=== PATIENT | male | born 1955 | race African-American/Black ===

== ENCOUNTER 2018-07-18 06:37 | Emergency (ER) | payer MEDICAID, OTHER ==
[~2018-07-18] VITALS: Ht 182.9 cm; Wt 77.0 kg
[2018-07-18] MEDS ORDERED: SODIUM CHLORIDE 0.9% 1,000 ML IV ONE ×3 (10:45→13:00)
[2018-07-18] MEDS ORDERED: KETOROLAC 15MG/ML VIAL IV ONE (10:45)
[2018-07-18 11:23] LABS: BASOPHILS % 0.7 % (0.0-2.0); EOSINOPHILS % 1.9 % (0.0-5.0); HEMOGLOBIN. 12.3 g/dL (14.0-18.0); LYMPHOCYTES % 24.8 % (20.0-50.0); MEAN CORPUSCULAR HEMOGLOBIN 30.9 pg (28.0-32.0); MEAN CORPUSCULAR VOLUME 95.7 fL (80.0-94.0); MEAN PLATELET VOLUME 9.6 fl (7.4-10.4); NEUTROPHILS % 63.6 % (40.0-76.0); PLATELET 219 x1000/uL (130-400); RED BLOOD CELL COUNT 3.98 mill/uL (4.7-6.1); RED CELL DISTRIBUTION WIDTH 14.6 % (11.6-14.6)
[2018-07-18 11:30] LABS: CHLORIDE 112 mEq/L (98-107)
[2018-07-18 11:33] LABS: INR 0.9; PROTHROMBIN TIME 9.5 sec (9.1-11.1)
[2018-07-18 11:46] LABS: CLARITY URINE CLEAR (CLEAR); COLOR URINE YELLOW (YELLOW); KETONES URINE TRACE (NEGATIVE); LEUKOCYTE ESTERASE URINE NEGATIVE (NEGATIVE); NITRITE URINE NEGATIVE (NEGATIVE); OCCULT BLOOD URINE NEGATIVE (NEGATIVE); PROTEIN URINE NEGATIVE (NEGATIVE); SPECIFIC GRAVITY URINE 1.029 (1.005-1.030)
[2018-07-18] MEDS ORDERED: IPRATROPIUM BROMIDE (0.02%) 0.5MG/2.5ML NEB HHN STA (11:57)
[2018-07-18] MEDS ORDERED: ALBUTEROL (0.083%) 2.5MG/3ML NEB HHN STA (11:57)
[2018-07-18 13:42] VITALS: BP 160/98
== END 2018-07-18 13:49 | disposition home or self-care (01) ==
LOC: ER 06:37
DX: K59.00 Constipation, unspecified (principal); F20.9 Schizophrenia, unspecified; I12.9 Hypertensive chronic kidney disease with stage 1 through stage 4 chronic kidney disease, or unspecified chronic kidney disease; N18.9 Chronic kidney disease, unspecified; J44.9 Chronic obstructive pulmonary disease, unspecified; E86.0 Dehydration; E88.09 Other disorders of plasma-protein metabolism, not elsewhere classified; D63.1 Anemia in chronic kidney disease; Z59.0 Homelessness; Z87.442 Personal history of urinary calculi
CPT/HCPCS: 36415; 71045; 80053; 80307; 80329; 81003; 83690; 85025; 85610; 96361; 96374; 99284; J1885; J7030; J7611

== ENCOUNTER 2018-07-23 09:56 | Inpatient (IN) | payer OTHER ==
[~2018-07-23] VITALS: Ht 165.1 cm; Wt 76.8 kg
[2018-07-23 11:12] LABS: BASOPHILS % 0.9 % (0.0-2.0); EOSINOPHILS % 1.4 % (0.0-5.0); HEMATOCRIT. 38.1 % (42.0-52.0); HEMOGLOBIN. 12.3 g/dL (14.0-18.0); LYMPHOCYTES % 19.4 % (20.0-50.0); MEAN CORPUSCULAR HEMOGLOBIN 30.6 pg (28.0-32.0); MEAN CORPUSCULAR VOLUME 94.8 fL (80.0-94.0); MEAN PLATELET VOLUME 9.1 fl (7.4-10.4); MONOCYTES % 7.9 % (2.0-8.0); NEUTROPHILS % 70.4 % (40.0-76.0); PLATELET 220 x1000/uL (130-400); RED BLOOD CELL COUNT 4.01 mill/uL (4.7-6.1); RED CELL DISTRIBUTION WIDTH 14.6 % (11.6-14.6)
[2018-07-23 11:20] LABS: CHLORIDE 109 mEq/L (98-107)
[2018-07-23 11:22] LABS: PARTIAL THROMBOPLASTIN TIME 27.2 sec (23.4-31.0); PROTHROMBIN TIME 10.3 sec (9.1-11.1)
[2018-07-23 11:33] LABS: CARBAMAZEPINE < 0.5 ug/mL (4-12); PHENOBARBITAL < 2.1 ug/mL (15.0-40.0)
[2018-07-23] MEDS ORDERED: ASPIRIN 325MG EC TABLET PO ONE (12:00)
[2018-07-23 12:30] LABS: CLARITY URINE CLEAR (CLEAR); COLOR URINE YELLOW (YELLOW); KETONES URINE NEGATIVE (NEGATIVE); LEUKOCYTE ESTERASE URINE NEGATIVE (NEGATIVE); NITRITE URINE NEGATIVE (NEGATIVE); OCCULT BLOOD URINE NEGATIVE (NEGATIVE); PH URINE 8.5 (4.5-8.0); PROTEIN URINE NEGATIVE (NEGATIVE); SPECIFIC GRAVITY URINE 1.011 (1.005-1.030); UROBILINOGEN URINE 0.2 E.U./dL (0.2-1.0)
[2018-07-23] MEDS ORDERED: HYDRALAZINE 20MG/ML VIAL IV ONE (12:30)
[2018-07-23 13:07] LABS: *AMPHETAMINES SCREEN URINE NEGATIVE (NEGATIVE); *BARBITURATES SCREEN URINE NEGATIVE (NEGATIVE); *BENZODIAZEPINES SCREEN URINE NEGATIVE (NEGATIVE); *COCAINE SCREEN URINE PRESUMTIVE POSITIVE (NEGATIVE)
[2018-07-23 13:08] LABS: CANNABINOID URINE SCREEN NEGATIVE (NEGATIVE); METHADONE URINE SCREEN NEGATIVE (NEGATIVE); OPIATES URINE SCREEN NEGATIVE (NEGATIVE); PHENCYCLIDINE URINE SCREEN PRESUMTIVE POSITIVE (NEGATIVE)
[2018-07-23] MEDS ORDERED: ONDANSETRON HCL 4MG/2ML INJ IV PRN (13:45)
[2018-07-23] MEDS ORDERED: LORAZEPAM 2MG/ML CPJ IV PRN (13:45)
[2018-07-23] MEDS ORDERED: ACETAMINOPHEN 325MG TABLET PO PRN (13:45)
[2018-07-23] MEDS ORDERED: HYDRALAZINE 20MG/ML VIAL IV PRN (15:00)
[2018-07-23] MEDS ORDERED: ENALAPRIL 2.5MG/2ML VIAL 2ML IV NR (17:00)
[2018-07-23 19:02] LABS: T4 FREE 0.96 ng/dL (0.76-1.46)
[2018-07-23 20:30] VITALS: BP 219/109
[2018-07-23 20:35] VITALS: BP 219/109
[2018-07-23] MEDS: LEVETIRACETAM 500MG TABLET PO SCH (21:14)
[2018-07-23] MEDS: HYDRALAZINE HCL 50MG TABLET PO SCH (21:14)
[2018-07-23] MEDS: MULTIVITAMINS,THER W-MINERALS TABLET PO SCH (21:14)
[2018-07-23] MEDS: THIAMINE HCL 100MG TABLET PO SCH (21:14)
[2018-07-23] MEDS: AMLODIPINE 5MG TABLET PO SCH (21:14)
[2018-07-23] MEDS: FOLIC ACID 1MG TABLET PO SCH (21:14)
[2018-07-23] MEDS: HYDRALAZINE 20MG/ML VIAL IV PRN (21:18)
[2018-07-23 22:15] VITALS: BP 165/73
[2018-07-23 23:43] VITALS: BP 154/77
[2018-07-23] MEDS: HYDROCODONE/ACETAMINOPHEN 5/325MG TABLET PO PRN (23:50)
[2018-07-24 02:26] LABS: VITAMIN B12 SERUM 456 pg/mL (211-911)
[2018-07-24 02:33] LABS: FOLIC ACID (FOLATE) SERUM > 20.00 ng/mL (>5.38)
[2018-07-24 04:30] VITALS: BP 184/92
[2018-07-24] MEDS: HYDRALAZINE 20MG/ML VIAL IV PRN ×2 (05:13→16:42)
[2018-07-24] MEDS: HYDRALAZINE HCL 50MG TABLET PO SCH ×2 (05:59→12:58)
[2018-07-24] MEDS: HYDROCODONE/ACETAMINOPHEN 5/325MG TABLET PO PRN ×2 (06:02→20:08)
[2018-07-24 08:00] VITALS: BP 173/83
[2018-07-24 08:24] LABS: BASOPHILS % 0.4 % (0.0-2.0); HEMATOCRIT. 46.2 % (42.0-52.0); LYMPHOCYTES % 13.7 % (20.0-50.0); MEAN CORPUSCULAR HEMOGLOBIN 30.9 pg (28.0-32.0); MEAN PLATELET VOLUME 9.9 fl (7.4-10.4); MONOCYTES % 5.5 % (2.0-8.0); NEUTROPHILS % 80.4 % (40.0-76.0); PLATELET 263 x1000/uL (130-400); RED BLOOD CELL COUNT 4.86 mill/uL (4.7-6.1); RED CELL DISTRIBUTION WIDTH 14.6 % (11.6-14.6)
[2018-07-24 08:32] LABS: CHLORIDE 106 mEq/L (98-107)
[2018-07-24] MEDS: AMLODIPINE 5MG TABLET PO SCH ×2 (12:23→21:45)
[2018-07-24] MEDS: FOLIC ACID 1MG TABLET PO SCH (12:23)
[2018-07-24] MEDS: THIAMINE HCL 100MG TABLET PO SCH (12:23)
[2018-07-24] MEDS: MULTIVITAMINS,THER W-MINERALS TABLET PO SCH (12:23)
[2018-07-24] MEDS: LOSARTAN POTASSIUM 100 MG TABLET PO SCH (12:23)
[2018-07-24] MEDS: LEVETIRACETAM 500MG TABLET PO SCH ×2 (12:33→21:46)
[2018-07-24] MEDS: MORPHINE SULFATE 4 MG/ML CPJ (NOT FOR IM USE) IV PRN ×2 (12:55→16:41)
[2018-07-24 15:20] VITALS: BP 142/77
[2018-07-24] MEDS ORDERED: SUMATRIPTAN SUCCINATE 6MG/0.5ML VIAL SUBCUT NR (16:00)
[2018-07-24 16:28] VITALS: BP 181/110
[2018-07-24 20:06] VITALS: BP 103/66
[2018-07-24 21:45] VITALS: BP 129/77
[2018-07-24] MEDS: HYDRALAZINE HCL 100MG TABLET PO SCH (21:46)
[2018-07-25] VITALS: BP 134/95
[2018-07-25 04:08] VITALS: BP 160/97
[2018-07-25] MEDS: MORPHINE SULFATE 4 MG/ML CPJ (NOT FOR IM USE) IV PRN ×2 (04:14→12:32)
[2018-07-25] MEDS: HYDRALAZINE 20MG/ML VIAL IV PRN (04:15)
[2018-07-25] MEDS: HYDRALAZINE HCL 100MG TABLET PO SCH ×3 (05:36→20:52)
[2018-07-25 08:04] VITALS: BP 150/88
[2018-07-25] MEDS: AMLODIPINE 5MG TABLET PO SCH ×2 (08:57→20:51)
[2018-07-25] MEDS: MULTIVITAMINS,THER W-MINERALS TABLET PO SCH (08:58)
[2018-07-25] MEDS: LEVETIRACETAM 500MG TABLET PO SCH ×2 (08:58→20:51)
[2018-07-25] MEDS: FOLIC ACID 1MG TABLET PO SCH (08:58)
[2018-07-25] MEDS: THIAMINE HCL 100MG TABLET PO SCH (08:58)
[2018-07-25] MEDS: LOSARTAN POTASSIUM 100 MG TABLET PO SCH (08:58)
[2018-07-25] MEDS: HYDROCODONE/ACETAMINOPHEN 5/325MG TABLET PO PRN ×2 (08:59→17:35)
[2018-07-25 12:25] VITALS: BP 140/93
[2018-07-25 16:00] VITALS: BP 133/94
[2018-07-25 20:00] VITALS: BP 136/80
[2018-07-26] VITALS: BP 143/75
[2018-07-26 04:00] VITALS: BP 123/87
[2018-07-26] MEDS: HYDRALAZINE HCL 100MG TABLET PO SCH (05:23)
[2018-07-26 07:13] LABS: BASOPHILS % 0.9 % (0.0-2.0); EOSINOPHILS % 1.3 % (0.0-5.0); HEMATOCRIT. 46.3 % (42.0-52.0); HEMOGLOBIN. 14.8 g/dL (14.0-18.0); LYMPHOCYTES % 35.6 % (20.0-50.0); MEAN CORPUSCULAR VOLUME 97.2 fL (80.0-94.0); MEAN PLATELET VOLUME 9.6 fl (7.4-10.4); MONOCYTES % 10.5 % (2.0-8.0); NEUTROPHILS % 51.7 % (40.0-76.0); PLATELET 195 x1000/uL (130-400); RED BLOOD CELL COUNT 4.76 mill/uL (4.7-6.1)
[2018-07-26 07:35] LABS: CHLORIDE 109 mEq/L (98-107)
[2018-07-26 07:42] VITALS: BP 135/86
[2018-07-26 07:54] VITALS: BP 135/86
== END 2018-07-26 08:35 | disposition home or self-care (01) | DRG 52 ==
LOC: ER 09:56 → 8WST 12:58 → ENRESERV 19:49
PROVIDERS: ADMIT Internal Medicine; ATTEND Internal Medicine
DX: G92 Toxic encephalopathy (principal); E87.8 Other disorders of electrolyte and fluid balance, not elsewhere classified; E44.1 Mild protein-calorie malnutrition; I16.0 Hypertensive urgency; F14.129 Cocaine abuse with intoxication, unspecified; G40.909 Epilepsy, unspecified, not intractable, without status epilepticus; D64.9 Anemia, unspecified; I10 Essential (primary) hypertension; Z86.73 Personal history of transient ischemic attack (TIA), and cerebral infarction without residual deficits; Z68.28 Body mass index [BMI] 28.0-28.9, adult
CPT/HCPCS: 36415; 70551; 71045; 80048; 80061; 80156; 80165; 80184; 80185; 80305; 80320; 82140; 82607; 82746; 83036; 83880; 84439; 84443; 84481; 84484; 93005; 96374; 96375; 96376; 97161; 99285; J0360; J2060; J2270; J3030; J3490; G0480

== ENCOUNTER 2018-08-29 11:35 | Inpatient (IN) | payer OTHER ==
[~2018-08-29] VITALS: Ht 172.7 cm; Wt 63.0 kg
[2018-08-29] MEDS ORDERED: LABETALOL 5MG/ML SYR 20 MG/4 ML SYRINGE IV ONE ×2 (12:15→12:24)
[2018-08-29 12:26] LABS: BASOPHILS % 0.6 % (0.0-2.0); EOSINOPHILS % 2.1 % (0.0-5.0); HEMATOCRIT. 43.2 % (42.0-52.0); HEMOGLOBIN. 14.2 g/dL (14.0-18.0); LYMPHOCYTES % 18.2 % (20.0-50.0); MEAN CORPUSCULAR HEMOGLOBIN 30.9 pg (28.0-32.0); MEAN CORPUSCULAR VOLUME 93.8 fL (80.0-94.0); MEAN PLATELET VOLUME 9.1 fl (7.4-10.4); MONOCYTES % 6.5 % (2.0-8.0); NEUTROPHILS % 72.6 % (40.0-76.0); PLATELET 221 x1000/uL (130-400); RED BLOOD CELL COUNT 4.61 mill/uL (4.7-6.1)
[2018-08-29 12:33] LABS: CHLORIDE 109 mEq/L (98-107)
[2018-08-29 12:34] LABS: PARTIAL THROMBOPLASTIN TIME 28.3 sec (23.4-31.0)
[2018-08-29 12:38] LABS: ETHANOL BLOOD < 10 mg/dL
[2018-08-29 12:41] LABS: LDL CHOLESTEROL 63 mg/dL (5-100)
[2018-08-29 12:42] LABS: CREATINE KINASE 562 IU/L (39-308)
[2018-08-29 12:52] LABS: CARBAMAZEPINE < 0.5 ug/mL (4-12); PHENOBARBITAL < 2.1 ug/mL (15.0-40.0); VALPROIC ACID < 3.0 ug/mL (50-100)
[2018-08-29] MEDS ORDERED: ASPIRIN 325MG EC TABLET PO ONE (13:15)
[2018-08-29] MEDS ORDERED: LEVETIRACETAM 500MG TABLET PO ONE (14:00)
[2018-08-29] MEDS ORDERED: LORAZEPAM 1MG TABLET PO ONE (14:15)
[2018-08-29] MEDS ORDERED: DOCUSATE SODIUM 100MG CAPSULE PO PRN (15:30)
[2018-08-29] MEDS ORDERED: MAGNESIUM/ALUMINUM HYDROXIDE/SIMETHICONE 30ML UDC PO PRN (15:30)
[2018-08-29] MEDS ORDERED: HYDROCODONE/ACETAMINOPHEN 5/325MG TABLET PO PRN (15:30)
[2018-08-29] MEDS ORDERED: ACETAMINOPHEN 325MG TABLET PO PRN (15:30)
[2018-08-29] MEDS ORDERED: IPRATROPIUM/ALBUTEROL 0.5-3(2.5)MG/3ML NEB INH PRN (15:30)
[2018-08-29] MEDS ORDERED: CLONIDINE 0.1MG TABLET PO PRN (15:30)
[2018-08-29] MEDS ORDERED: ONDANSETRON HCL 4MG/2ML INJ IV PRN (15:30)
[2018-08-29 17:07] LABS: CHLORIDE 109 mEq/L (98-107)
[2018-08-29] MEDS ORDERED: DEXTROSE 50% WATER 50ML SYRINGE IV PRN (21:00)
[2018-08-29 21:54] VITALS: BP 189/104
[2018-08-29] MEDS ORDERED: QUET400T PO (22:51)
[2018-08-29] MEDS ORDERED: OXYC-662 PO (22:51)
[2018-08-29] MEDS ORDERED: S350 PO (22:51)
[2018-08-29] MEDS ORDERED: SERT100T PO (22:51)
[2018-08-29 23:40] VITALS: BP 148/84
[2018-08-29 23:42] VITALS: BP 148/84
[2018-08-30] MEDS ORDERED: HYDRALAZINE 20MG/ML VIAL IV PRN (00:30)
[2018-08-30 02:06] LABS: CREATINE KINASE 367 IU/L (39-308)
[2018-08-30 04:00] VITALS: BP_SYST 157; BP_DIAS 88; BP_DIAS 93
[2018-08-30] MEDS: OXYCODONE HCL 5MG TABLET PO PRN ×2 (04:02→20:41)
[2018-08-30] MEDS: BLOOD SUGAR DIAGNOSTIC STRIP TEST SCH ×4 (05:16→20:37)
[2018-08-30 05:24] LABS: BASOPHILS % 0.7 % (0.0-2.0); EOSINOPHILS % 3.3 % (0.0-5.0); HEMATOCRIT. 37.3 % (42.0-52.0); HEMOGLOBIN. 12.2 g/dL (14.0-18.0); LYMPHOCYTES % 25.3 % (20.0-50.0); MEAN CORPUSCULAR HEMOGLOBIN 30.5 pg (28.0-32.0); MEAN CORPUSCULAR VOLUME 93.5 fL (80.0-94.0); MONOCYTES % 10.4 % (2.0-8.0); NEUTROPHILS % 60.3 % (40.0-76.0); PLATELET 228 x1000/uL (130-400); RED BLOOD CELL COUNT 3.99 mill/uL (4.7-6.1); RED CELL DISTRIBUTION WIDTH 14.8 % (11.6-14.6)
[2018-08-30 05:43] LABS: CREATINE KINASE MB FRACTION 9.4 ng/mL (0.5-3.6)
[2018-08-30 08:00] VITALS: BP 181/100
[2018-08-30] MEDS: INSULIN LISPRO 100 UNITS/ML SUBCUT SCH ×4 (08:10→20:41)
[2018-08-30 08:56] LABS: CLARITY URINE CLEAR (CLEAR); COLOR URINE YELLOW (YELLOW); KETONES URINE TRACE (NEGATIVE); LEUKOCYTE ESTERASE URINE NEGATIVE (NEGATIVE); NITRITE URINE NEGATIVE (NEGATIVE); OCCULT BLOOD URINE NEGATIVE (NEGATIVE); PROTEIN URINE NEGATIVE (NEGATIVE); SPECIFIC GRAVITY URINE 1.018 (1.005-1.030); UROBILINOGEN URINE 0.2 E.U./dL (0.2-1.0)
[2018-08-30 09:15] LABS: *AMPHETAMINES SCREEN URINE NEGATIVE (NEGATIVE); *BARBITURATES SCREEN URINE NEGATIVE (NEGATIVE); *BENZODIAZEPINES SCREEN URINE NEGATIVE (NEGATIVE); *COCAINE SCREEN URINE NEGATIVE (NEGATIVE); CANNABINOID URINE SCREEN NEGATIVE (NEGATIVE); METHADONE URINE SCREEN NEGATIVE (NEGATIVE); OPIATES URINE SCREEN NEGATIVE (NEGATIVE)
[2018-08-30 09:16] LABS: PHENCYCLIDINE URINE SCREEN PRESUMTIVE POSITIVE (NEGATIVE)
[2018-08-30] MEDS: ASPIRIN 81MG EC TABLET PO SCH (09:37)
[2018-08-30] MEDS: ENOXAPARIN 40MG/0.4ML SYR SUBCUT SCH (09:40)
[2018-08-30 12:00] VITALS: BP 153/96
[2018-08-30 15:09] VITALS: BP 149/80
[2018-08-30 16:00] VITALS: BP 139/85
[2018-08-30 20:00] VITALS: BP 131/83
[2018-08-31 00:05] VITALS: BP 139/77
[2018-08-31] MEDS: OXYCODONE HCL 5MG TABLET PO PRN ×2 (03:56→09:06)
[2018-08-31 04:00] VITALS: BP 140/85
[2018-08-31 05:57] LABS: BASOPHILS % 0.5 % (0.0-2.0); EOSINOPHILS % 1.3 % (0.0-5.0); HEMOGLOBIN. 12.4 g/dL (14.0-18.0); LYMPHOCYTES % 25.4 % (20.0-50.0); MEAN CORPUSCULAR HEMOGLOBIN 31.1 pg (28.0-32.0); MEAN CORPUSCULAR VOLUME 92.9 fL (80.0-94.0); MEAN PLATELET VOLUME 9.3 fl (7.4-10.4); MONOCYTES % 7.3 % (2.0-8.0); NEUTROPHILS % 65.5 % (40.0-76.0); PLATELET 229 x1000/uL (130-400); RED BLOOD CELL COUNT 3.99 mill/uL (4.7-6.1); RED CELL DISTRIBUTION WIDTH 14.6 % (11.6-14.6)
[2018-08-31 06:05] LABS: CHLORIDE 107 mEq/L (98-107)
[2018-08-31] MEDS: INSULIN LISPRO 100 UNITS/ML SUBCUT SCH (07:53)
[2018-08-31] MEDS: BLOOD SUGAR DIAGNOSTIC STRIP TEST SCH (07:53)
[2018-08-31 08:12] VITALS: BP 149/99
[2018-08-31] MEDS: ASPIRIN 81MG EC TABLET PO SCH (09:03)
[2018-08-31] MEDS: ENOXAPARIN 40MG/0.4ML SYR SUBCUT SCH (09:03)
[2018-08-31] MEDS ORDERED: ASPI-1158 PO (12:23)
[2018-08-31 13:51] VITALS: BP 149/99
== END 2018-08-31 14:44 | disposition home or self-care (01) | DRG 347 ==
LOC: ER 11:45 → 7WST 13:41 → EDBEDREQSVC 13:47 → EDBEDREQ 13:47 → ENRESERV 20:26
PROVIDERS: ADMIT Internal Medicine; ATTEND Internal Medicine
DX: M48.02 Spinal stenosis, cervical region (principal); N17.9 Acute kidney failure, unspecified; E87.8 Other disorders of electrolyte and fluid balance, not elsewhere classified; I69.351 Hemiplegia and hemiparesis following cerebral infarction affecting right dominant side; E78.5 Hyperlipidemia, unspecified; F16.90 Hallucinogen use, unspecified, uncomplicated; F17.210 Nicotine dependence, cigarettes, uncomplicated; I10 Essential (primary) hypertension; I16.1 Hypertensive emergency; M47.812 Spondylosis without myelopathy or radiculopathy, cervical region; Z91.19 Patient's noncompliance with other medical treatment and regimen; I16.0 Hypertensive urgency; R73.9 Hyperglycemia, unspecified
CPT/HCPCS: 36415; 70551; 71045; 72141; 80048; 80061; 80156; 80165; 80184; 80185; 80305; 80320; 82550; 82553; 82962; 83036; 83721; 83735; 83880; 84443; 84484; 93005; 93880; 93970; 96374; 97162; 97165; 99291; J1650; J1815; J3490; G0480

== ENCOUNTER 2018-09-25 04:51 | Emergency (ER) | payer OTHER ==
[~2018-09-25] VITALS: Ht 177.8 cm; Wt 70.0 kg
[~2018-09-25 04:51] MED LIST: ASPI-1158 PO; QUET400T PO; SERT100T PO
[2018-09-25] MEDS ORDERED: HYDROCODONE/ACETAMINOPHEN 5/325MG TABLET PO ONE (06:15)
[2018-09-25] MEDS ORDERED: CLONIDINE 0.1MG TABLET PO ONE (07:45)
[2018-09-25 08:15] VITALS: BP 180/113
== END 2018-09-25 08:20 | disposition home or self-care (01) ==
LOC: ER 04:51
DX: S09.8XXA Other specified injuries of head, initial encounter (principal); S00.83XA Contusion of other part of head, initial encounter; S00.81XA Abrasion of other part of head, initial encounter; S00.31XA Abrasion of nose, initial encounter; F32.9 Major depressive disorder, single episode, unspecified; I10 Essential (primary) hypertension; G40.909 Epilepsy, unspecified, not intractable, without status epilepticus; Y04.0XXA Assault by unarmed brawl or fight, initial encounter; Y93.89 Activity, other specified; Y92.488 Other paved roadways as the place of occurrence of the external cause
CPT/HCPCS: 70486; 99284

== ENCOUNTER 2019-09-09 08:50 | Emergency (ER) | payer MEDICARE, OTHER, MEDICAID ==
[~2019-09-09] VITALS: Ht 177.8 cm; Wt 65.0 kg
[2019-09-09] MEDS ORDERED: HYDROCODONE/ACETAMINOPHEN 5/325MG TABLET PO STA (09:43)
[2019-09-09] MEDS ORDERED: CLONIDINE 0.2MG TABLET PO ONE (09:45)
[2019-09-09 10:31] LABS: CLARITY URINE CLEAR (CLEAR); COLOR URINE YELLOW (YELLOW); KETONES URINE NEGATIVE (NEGATIVE); LEUKOCYTE ESTERASE URINE NEGATIVE (NEGATIVE); NITRITE URINE NEGATIVE (NEGATIVE); OCCULT BLOOD URINE NEGATIVE (NEGATIVE); PH URINE 7.5 (4.5-8.0); PROTEIN URINE TRACE (NEGATIVE); SPECIFIC GRAVITY URINE 1.022 (1.005-1.030); UROBILINOGEN URINE 0.2 E.U./dL (0.2-1.0)
[2019-09-09 10:32] LABS: BASOPHILS % 0.8 % (0.0-2.0); EOSINOPHILS % 2.4 % (0.0-5.0); HEMATOCRIT. 40.3 % (42.0-52.0); HEMOGLOBIN. 13.3 g/dL (14.0-18.0); MEAN CORPUSCULAR HEMOGLOBIN 31.2 pg (28.0-32.0); MEAN CORPUSCULAR VOLUME 94.4 fL (80.0-94.0); MEAN PLATELET VOLUME 9.3 fl (7.4-10.4); MONOCYTES % 6.3 % (2.0-8.0); NEUTROPHILS % 73.5 % (40.0-76.0); PLATELET 274 x1000/uL (130-400); RED BLOOD CELL COUNT 4.27 mill/uL (4.7-6.1); RED CELL DISTRIBUTION WIDTH 15.2 % (11.6-14.6)
[2019-09-09 10:33] LABS: CHLORIDE 108 mEq/L (98-107)
[2019-09-09 10:34] LABS: INR 0.9; PROTHROMBIN TIME 9.8 sec (9.6-11.0)
[2019-09-09 10:38] LABS: ETHANOL BLOOD < 10 mg/dL
[2019-09-09 11:01] LABS: *AMPHETAMINES SCREEN URINE NEGATIVE (NEGATIVE); *BARBITURATES SCREEN URINE NEGATIVE (NEGATIVE); *BENZODIAZEPINES SCREEN URINE NEGATIVE (NEGATIVE); *COCAINE SCREEN URINE PRESUMTIVE POSITIVE (NEGATIVE); METHADONE URINE SCREEN NEGATIVE (NEGATIVE); OPIATES URINE SCREEN NEGATIVE (NEGATIVE)
[2019-09-09 11:02] LABS: CANNABINOID URINE SCREEN NEGATIVE (NEGATIVE); PHENCYCLIDINE URINE SCREEN PRESUMTIVE POSITIVE (NEGATIVE)
[2019-09-09 11:59] VITALS: BP 144/98
== END 2019-09-09 12:43 | disposition home or self-care (01) ==
LOC: ER 08:50
DX: I10 Essential (primary) hypertension (principal); M25.532 Pain in left wrist; F14.10 Cocaine abuse, uncomplicated; F16.10 Hallucinogen abuse, uncomplicated; H53.8 Other visual disturbances; Z91.19 Patient's noncompliance with other medical treatment and regimen; Z86.73 Personal history of transient ischemic attack (TIA), and cerebral infarction without residual deficits; Z79.899 Other long term (current) drug therapy; Z79.82 Long term (current) use of aspirin
CPT/HCPCS: 36415; 80053; 80305; 80320; 81003; 84484; 85025; 93005; 99285; G0480

== ENCOUNTER 2021-01-28 23:51 | Emergency (ER) | payer MEDICARE, OTHER ==
[~2021-01-28] VITALS: Ht 177.8 cm; Wt 68.0 kg
[~2021-01-28 23:51] MED LIST changes: +ALBU18HF2 IH; -ASPI-1158 PO; +FLUT1DIS3 INH; +QUET300T20 MT; -QUET400T PO
[2021-01-29] MEDS ORDERED: IPRATROPIUM BROMIDE (0.02%) 0.5MG/2.5ML NEB HHN STA ×2 (02:16→05:46)
[2021-01-29] MEDS ORDERED: ALBUTEROL (0.083%) 2.5MG/3ML NEB HHN STA ×2 (02:16→05:46)
[2021-01-29] MEDS ORDERED: PREDNISONE 20MG TABLET PO STA (02:16)
[2021-01-29 03:26] LABS: CHLORIDE 112 mEq/L (98-107)
[2021-01-29] MEDS ORDERED: QUET300T2 PO (07:13)
[2021-01-29] MEDS ORDERED: P50 PO (07:13)
[2021-01-29] MEDS ORDERED: ALBU6.7H9 INH (07:13)
[2021-01-29] MEDS ORDERED: SERT-112 PO (07:13)
[2021-01-29 07:30] VITALS: BP 178/107
== END 2021-01-29 07:51 | disposition home or self-care (01) ==
LOC: ER 23:51
DX: J44.1 Chronic obstructive pulmonary disease with (acute) exacerbation (principal); I10 Essential (primary) hypertension; F99 Mental disorder, not otherwise specified; F14.10 Cocaine abuse, uncomplicated; F15.10 Other stimulant abuse, uncomplicated; F12.10 Cannabis abuse, uncomplicated; Z20.822 Contact with and (suspected) exposure to COVID-19; Z86.73 Personal history of transient ischemic attack (TIA), and cerebral infarction without residual deficits
CPT/HCPCS: 36415; 71045; 80053; 83880; 84484; 85379; 87426; 93005; 94640; 99285; J7512; Z7610

== ENCOUNTER 2021-04-05 21:49 | Inpatient (IN) | payer MEDICARE, OTHER ==
[~2021-04-05] VITALS: Ht 177.8 cm; Wt 64.9 kg
[~2021-04-05 21:49] MED LIST changes: +ALBU6.7H9 INH; +P50 PO; +QUET300T2 PO; +SERT-112 PO
[2021-04-05] MEDS ORDERED: MORPHINE SULFATE 4 MG/ML CPJ (NOT FOR IM USE) IV STA (23:50)
[2021-04-05] MEDS ORDERED: ONDANSETRON HCL 4MG/2ML INJ IV STA (23:50)
[2021-04-06] MEDS ORDERED: SODIUM CHLORIDE 0.9% 1,000 ML IV ONE
[2021-04-06 00:17] LABS: CHLORIDE 119 mEq/L (98-107)
[2021-04-06 00:18] LABS: BASOPHILS % 0.9 % (0.0-2.0); EOSINOPHILS % 2.3 % (0.0-5.0); HEMATOCRIT. 40.2 % (42.0-52.0); HEMOGLOBIN. 13.1 g/dL (14.0-18.0); LYMPHOCYTES % 29.3 % (20.0-50.0); MEAN CORPUSCULAR HEMOGLOBIN 29.9 pg (28.0-32.0); MEAN CORPUSCULAR VOLUME 91.7 fL (80.0-94.0); MEAN PLATELET VOLUME 9.8 fl (7.4-10.4); MONOCYTES % 9.6 % (2.0-8.0); NEUTROPHILS % 57.9 % (40.0-76.0); PLATELET 221 x1000/uL (130-400); RED BLOOD CELL COUNT 4.38 mill/uL (4.7-6.1); RED CELL DISTRIBUTION WIDTH 16.4 % (11.6-14.6)
[2021-04-06] MEDS ORDERED: MORPHINE SULFATE 4 MG/ML CPJ (NOT FOR IM USE) IV ONE (03:30)
[2021-04-06 05:42] LABS: *BENZODIAZEPINES SCREEN URINE NEGATIVE (NEGATIVE); *COCAINE SCREEN URINE PRESUMTIVE POSITIVE (NEGATIVE)
[2021-04-06 05:43] LABS: *AMPHETAMINES SCREEN URINE NEGATIVE (NEGATIVE); *BARBITURATES SCREEN URINE NEGATIVE (NEGATIVE); CANNABINOID URINE SCREEN PRESUMTIVE POSITIVE (NEGATIVE); METHADONE URINE SCREEN NEGATIVE (NEGATIVE); OPIATES URINE SCREEN NEGATIVE (NEGATIVE); PHENCYCLIDINE URINE SCREEN PRESUMTIVE POSITIVE (NEGATIVE)
[2021-04-06] MEDS ORDERED: IOHEXOL-300 100 ML BOTTLE ONE (06:20)
[2021-04-06] MEDS: CLONIDINE 0.1MG TABLET PO PRN ×2 (08:12→13:33)
[2021-04-06] MEDS ORDERED: ACETAMINOPHEN 325MG TABLET PO PRN (08:45)
[2021-04-06] MEDS ORDERED: DIPHENHYDRAMINE 50MG/ML VIAL IV PRN (08:45)
[2021-04-06] MEDS ORDERED: NALOXONE HCL 0.4MG/ML VIAL IV PRN (08:45)
[2021-04-06] MEDS ORDERED: HYDRALAZINE 20MG/ML VIAL IV PRN (08:45)
[2021-04-06] MEDS ORDERED: ONDANSETRON HCL 4MG/2ML INJ IV PRN (08:45)
[2021-04-06] MEDS: MORPHINE SULFATE 2 MG/ML CPJ (NOT FOR IM USE) IV PRN ×2 (09:50→21:23)
[2021-04-06 13:00] VITALS: BP 171/92
[2021-04-06 14:33] VITALS: BP 159/90
[2021-04-06] MEDS ORDERED: DORZ10DR9 EACHEYE (15:05)
[2021-04-06] MEDS ORDERED: LISI-186 PO (15:05)
[2021-04-06] MEDS: DEXTROSE 5% WATER 1,000 ML IV SCH ×2 (15:23→22:45)
[2021-04-06 16:00] VITALS: BP 175/8
[2021-04-06 16:17] VITALS: BP 171/85
[2021-04-06 17:23] VITALS: BP 146/81
[2021-04-06 20:00] VITALS: BP 123/68
[2021-04-06] MEDS ORDERED: ALBUTEROL 6.7GM HFA INHALER INH SCH (20:45)
[2021-04-06] MEDS: QUETIAPINE FUMARATE 50MG TABLET PO SCH (21:21)
[2021-04-06] MEDS: DORZOLAM/TIMOLOL 2.23/0.68% OPHTH DROPS 10ML EACHEYE SCH (22:45)
[2021-04-07] VITALS: BP 140/84
[2021-04-07] MEDS: IPRATROPIUM/ALBUTEROL 0.5-3(2.5)MG/3ML NEB HHN PRN ×2 (00:26→04:30)
[2021-04-07 04:00] VITALS: BP 153/88
[2021-04-07 06:59] LABS: CHLORIDE 109 mEq/L (98-107)
[2021-04-07 07:08] LABS: LDL CHOLESTEROL 78 mg/dL (5-100)
[2021-04-07 07:10] LABS: HDL CHOLESTEROL 55 mg/dL (40-59)
[2021-04-07 07:25] LABS: BASOPHILS % 0.8 % (0.0-2.0); EOSINOPHILS % 4.4 % (0.0-5.0); HEMATOCRIT. 41.2 % (42.0-52.0); HEMOGLOBIN. 13.5 g/dL (14.0-18.0); LYMPHOCYTES % 25.2 % (20.0-50.0); MEAN CORPUSCULAR VOLUME 91.5 fL (80.0-94.0); MEAN PLATELET VOLUME 9.9 fl (7.4-10.4); MONOCYTES % 8.7 % (2.0-8.0); NEUTROPHILS % 60.9 % (40.0-76.0); PLATELET 209 x1000/uL (130-400); RED CELL DISTRIBUTION WIDTH 16.9 % (11.6-14.6)
[2021-04-07 09:00] VITALS: BP 149/85
[2021-04-07] MEDS: SERTRALINE HCL 100MG TABLET PO SCH (09:47)
[2021-04-07] MEDS: DORZOLAM/TIMOLOL 2.23/0.68% OPHTH DROPS 10ML EACHEYE SCH ×2 (09:48→20:42)
[2021-04-07] MEDS: LISINOPRIL 5MG TABLET PO SCH (09:48)
[2021-04-07 12:00] VITALS: BP 151/79
[2021-04-07 16:00] VITALS: BP 147/76
[2021-04-07] MEDS: DEXTROSE 5% WATER 1,000 ML IV SCH (16:08)
[2021-04-07] MEDS: MORPHINE SULFATE 2 MG/ML CPJ (NOT FOR IM USE) IV PRN ×2 (16:08→20:48)
[2021-04-07 20:00] VITALS: BP 127/88
[2021-04-07] MEDS: ALBUTEROL (0.083%) 2.5MG/3ML NEB HHN SCH (20:00)
[2021-04-07] MEDS: QUETIAPINE FUMARATE 50MG TABLET PO SCH (20:42)
[2021-04-07] MEDS ORDERED: ALBUTEROL (0.083%) 2.5MG/3ML NEB HHN SCH (21:00)
[2021-04-07 23:56] LABS: CLARITY URINE CLEAR (CLEAR); COLOR URINE YELLOW (YELLOW); KETONES URINE TRACE (NEGATIVE); LEUKOCYTE ESTERASE URINE NEGATIVE (NEGATIVE); NITRITE URINE NEGATIVE (NEGATIVE); OCCULT BLOOD URINE NEGATIVE (NEGATIVE); PH URINE 5.5 (4.5-8.0); PROTEIN URINE NEGATIVE (NEGATIVE); SPECIFIC GRAVITY URINE 1.018 (1.005-1.030); UROBILINOGEN URINE 0.2 E.U./dL (0.2-1.0)
[2021-04-08] VITALS: BP 144/69
[2021-04-08] MEDS: DEXTROSE 5% WATER 1,000 ML IV SCH ×2 (02:04→17:06)
[2021-04-08 04:00] VITALS: BP 123/81
[2021-04-08] MEDS: ALBUTEROL (0.083%) 2.5MG/3ML NEB HHN SCH ×6 (04:00→20:24)
[2021-04-08 08:00] VITALS: BP 139/82
[2021-04-08] MEDS: LISINOPRIL 5MG TABLET PO SCH (08:55)
[2021-04-08] MEDS: SERTRALINE HCL 100MG TABLET PO SCH (08:55)
[2021-04-08] MEDS: DORZOLAM/TIMOLOL 2.23/0.68% OPHTH DROPS 10ML EACHEYE SCH ×2 (08:56→20:19)
[2021-04-08] MEDS: MORPHINE SULFATE 2 MG/ML CPJ (NOT FOR IM USE) IV PRN ×2 (09:07→20:19)
[2021-04-08 12:00] VITALS: BP 123/83
[2021-04-08 15:49] LABS: BASOPHILS % 0.6 % (0.0-2.0); EOSINOPHILS % 3.5 % (0.0-5.0); HEMATOCRIT. 40.3 % (42.0-52.0); LYMPHOCYTES % 27.1 % (20.0-50.0); MEAN CORPUSCULAR HEMOGLOBIN 29.5 pg (28.0-32.0); MEAN CORPUSCULAR VOLUME 91.8 fL (80.0-94.0); MONOCYTES % 9.4 % (2.0-8.0); NEUTROPHILS % 59.4 % (40.0-76.0); PLATELET 234 x1000/uL (130-400); RED BLOOD CELL COUNT 4.39 mill/uL (4.7-6.1); RED CELL DISTRIBUTION WIDTH 16.8 % (11.6-14.6)
[2021-04-08 15:58] LABS: CHLORIDE 110 mEq/L (98-107)
[2021-04-08 16:00] VITALS: BP 116/63
[2021-04-08 16:04] LABS: PHOSPHORUS 3.7 mg/dL (2.5-4.9)
[2021-04-08 19:52] VITALS: BP 130/72
[2021-04-08] MEDS: QUETIAPINE FUMARATE 50MG TABLET PO SCH (20:19)
[2021-04-09] VITALS: BP 122/77
[2021-04-09 04:00] VITALS: BP 140/71
[2021-04-09] MEDS: ALBUTEROL (0.083%) 2.5MG/3ML NEB HHN SCH ×6 (04:00→22:05)
[2021-04-09] MEDS: DEXTROSE 5% WATER 1,000 ML IV SCH (05:24)
[2021-04-09 06:17] LABS: BASOPHILS % 0.6 % (0.0-2.0); EOSINOPHILS % 4.6 % (0.0-5.0); HEMATOCRIT. 39.2 % (42.0-52.0); HEMOGLOBIN. 12.7 g/dL (14.0-18.0); LYMPHOCYTES % 29.7 % (20.0-50.0); MEAN CORPUSCULAR HEMOGLOBIN 29.8 pg (28.0-32.0); MEAN CORPUSCULAR VOLUME 91.7 fL (80.0-94.0); MEAN PLATELET VOLUME 9.9 fl (7.4-10.4); MONOCYTES % 10.9 % (2.0-8.0); NEUTROPHILS % 54.2 % (40.0-76.0); PLATELET 222 x1000/uL (130-400); RED BLOOD CELL COUNT 4.28 mill/uL (4.7-6.1); RED CELL DISTRIBUTION WIDTH 16.6 % (11.6-14.6)
[2021-04-09 06:25] LABS: CHLORIDE 111 mEq/L (98-107)
[2021-04-09 08:00] VITALS: BP 143/82
[2021-04-09] MEDS: DORZOLAM/TIMOLOL 2.23/0.68% OPHTH DROPS 10ML EACHEYE SCH ×2 (08:51→20:28)
[2021-04-09] MEDS: LISINOPRIL 5MG TABLET PO SCH (08:51)
[2021-04-09] MEDS: SERTRALINE HCL 100MG TABLET PO SCH (09:00)
[2021-04-09] MEDS: MORPHINE SULFATE 2 MG/ML CPJ (NOT FOR IM USE) IV PRN (20:15)
[2021-04-09] MEDS: QUETIAPINE FUMARATE 50MG TABLET PO SCH (20:27)
[2021-04-10] MEDS: ALBUTEROL (0.083%) 2.5MG/3ML NEB HHN SCH ×6 (04:00→20:00)
[2021-04-10 07:00] LABS: CHLORIDE 110 mEq/L (98-107)
[2021-04-10 07:06] LABS: PHOSPHORUS 3.5 mg/dL (2.5-4.9)
[2021-04-10 07:13] LABS: BASOPHILS % 0.7 % (0.0-2.0); EOSINOPHILS % 4.1 % (0.0-5.0); HEMATOCRIT. 39.5 % (42.0-52.0); HEMOGLOBIN. 12.7 g/dL (14.0-18.0); LYMPHOCYTES % 22.1 % (20.0-50.0); MEAN CORPUSCULAR HEMOGLOBIN 29.4 pg (28.0-32.0); MEAN CORPUSCULAR VOLUME 91.4 fL (80.0-94.0); MEAN PLATELET VOLUME 9.6 fl (7.4-10.4); MONOCYTES % 10.5 % (2.0-8.0); NEUTROPHILS % 62.6 % (40.0-76.0); PLATELET 231 x1000/uL (130-400); RED BLOOD CELL COUNT 4.32 mill/uL (4.7-6.1); RED CELL DISTRIBUTION WIDTH 16.3 % (11.6-14.6)
[2021-04-10 08:00] VITALS: BP 128/74
[2021-04-10] MEDS: LISINOPRIL 5MG TABLET PO SCH (10:35)
[2021-04-10] MEDS: SERTRALINE HCL 100MG TABLET PO SCH (10:35)
[2021-04-10] MEDS: DORZOLAM/TIMOLOL 2.23/0.68% OPHTH DROPS 10ML EACHEYE SCH ×2 (10:35→20:18)
[2021-04-10 12:00] VITALS: BP 131/74
[2021-04-10] MEDS: MORPHINE SULFATE 2 MG/ML CPJ (NOT FOR IM USE) IV PRN (13:59)
[2021-04-10 20:00] VITALS: BP 117/70
[2021-04-10] MEDS: QUETIAPINE FUMARATE 50MG TABLET PO SCH (20:18)
[2021-04-11] VITALS (7 sets, daily range): BP systolic 103–132; BP diastolic 60–78
[2021-04-11] MEDS: ALBUTEROL (0.083%) 2.5MG/3ML NEB HHN SCH ×3 (04:00→20:34)
[2021-04-11] MEDS: SERTRALINE HCL 100MG TABLET PO SCH (08:45)
[2021-04-11] MEDS: DORZOLAM/TIMOLOL 2.23/0.68% OPHTH DROPS 10ML EACHEYE SCH ×2 (08:45→20:11)
[2021-04-11] MEDS: LISINOPRIL 5MG TABLET PO SCH (08:45)
[2021-04-11] MEDS: MORPHINE SULFATE 2 MG/ML CPJ (NOT FOR IM USE) IV PRN (08:46)
[2021-04-11 08:50] LABS: BASOPHILS % 0.6 % (0.0-2.0); EOSINOPHILS % 5.3 % (0.0-5.0); HEMATOCRIT. 39.8 % (42.0-52.0); HEMOGLOBIN. 12.8 g/dL (14.0-18.0); LYMPHOCYTES % 27.8 % (20.0-50.0); MEAN CORPUSCULAR HEMOGLOBIN 29.5 pg (28.0-32.0); MEAN CORPUSCULAR VOLUME 91.8 fL (80.0-94.0); MEAN PLATELET VOLUME 9.4 fl (7.4-10.4); MONOCYTES % 11.6 % (2.0-8.0); NEUTROPHILS % 54.7 % (40.0-76.0); PLATELET 223 x1000/uL (130-400); RED BLOOD CELL COUNT 4.33 mill/uL (4.7-6.1); RED CELL DISTRIBUTION WIDTH 16.1 % (11.6-14.6)
[2021-04-11 09:02] LABS: CHLORIDE 111 mEq/L (98-107)
[2021-04-11] MEDS: QUETIAPINE FUMARATE 50MG TABLET PO SCH (20:11)
== END 2021-04-11 21:06 | DRG 347 ==
LOC: ER 21:49 → EDBEDREQSVC 04-06 06:18 → EDBEDREQ 04-06 06:18 → EDBEDREQTM 04-06 06:18 → 7WST 04-06 06:21 → EDBEDREQ 04-06 06:25 → ENRESERV 04-06 07:20 → EDBEDREQSVC 04-06 08:52 → ENRESERV 04-06 08:57 → 6WST 04-06 11:32
PROVIDERS: ADMIT Internal Medicine; ATTEND Internal Medicine
DX: M47.812 Spondylosis without myelopathy or radiculopathy, cervical region (principal); N17.9 Acute kidney failure, unspecified; E87.0 Hyperosmolality and hypernatremia; E78.5 Hyperlipidemia, unspecified; F16.129 Hallucinogen abuse with intoxication, unspecified; F20.9 Schizophrenia, unspecified; F31.9 Bipolar disorder, unspecified; G83.14 Monoplegia of lower limb affecting left nondominant side; F17.200 Nicotine dependence, unspecified, uncomplicated; I10 Essential (primary) hypertension; J44.9 Chronic obstructive pulmonary disease, unspecified; Z20.822 Contact with and (suspected) exposure to COVID-19; W01.0XXA Fall on same level from slipping, tripping and stumbling without subsequent striking against object, initial encounter; T14.8XXA Other injury of unspecified body region, initial encounter; F14.129 Cocaine abuse with intoxication, unspecified; M47.816 Spondylosis without myelopathy or radiculopathy, lumbar region; Z79.899 Other long term (current) drug therapy; Z82.49 Family history of ischemic heart disease and other diseases of the circulatory system; Y93.89 Activity, other specified; Y92.89 Other specified places as the place of occurrence of the external cause; Y99.8 Other external cause status; Z86.73 Personal history of transient ischemic attack (TIA), and cerebral infarction without residual deficits; Z79.51 Long term (current) use of inhaled steroids; Z98.1 Arthrodesis status
CPT/HCPCS: 36415; 71045; 71260; 72141; 72146; 72148; 72170; 74177; 80048; 80053; 80061; 80305; 80320; 81003; 83735; 83935; 84100; 85025; 87426; 93005; 93970; 94640; 97162; 99285; J0360; J1200; J2270; J2405; J7030; J7042; J7070; Q9967; G0480